=== PATIENT | male | born 1985 | race Caucasian/White ===

== ENCOUNTER 2019-09-25 15:54 | Emergency (ER) | payer SELFPAY ==
[~2019-09-25] VITALS: Ht 175.3 cm; Wt 91.0 kg
--- NOTE | 2019-09-25 16:11 | NUR ---
BIB [facility] FROM HOME. PT C/O SUBSTERNAL CP STARTING TODAY 0800 AND THEN AGAIN THIS AFTERNOON. CP RADIATES TO LEFT NECK/JAW. PAIN 11/19. [employer] [facility]: PIV 18G LAC, 324MG ASA, BS 83. FAMILY HX: DAD MULTIPLE HEART ATTACKS, STILL ALIVE PT AMBULATED TO RESTROOM WITH STEADY GAIT. PT CONNECTED TO MONITORING. CALL LIGHT IN REACH. EKG DONE.
[2019-09-25 17:06] VITALS: BP 116/65
--- NOTE | 2019-09-25 18:05 | NUR ---
Darrell RN: Pt ambulated from ED room requesting directions to exit stating that he does not wish for further workup. Pt cooperative and returned to room to get dressed & have IV removed. Pt signed AMA paperwork, ambulated independently to ED exit in NAD. Pt called to pick him up.
== END 2019-09-25 18:14 | disposition left against medical advice (07) ==
LOC: ED 16:30
DX: R07.89 Other chest pain (principal); F17.200 Nicotine dependence, unspecified, uncomplicated
CPT/HCPCS: 93005; 99283